=== PATIENT | female | born 1945 ===

== ENCOUNTER 2022-01-21 08:06 | Inpatient (IN) | payer MEDICARE ==
[~2022-01-21] VITALS: Ht 157.5 cm; Wt 56.0 kg
[2022-01-21 08:39] LABS: BASOPHIL 0.3 % (0-2); EOSINOPHIL 0.2 % (0-7); HCT 35.9 % (37.0-47.0); HGB 12.1 g/dl (12.5-16.0); MCH 31.6 pg (25.0-31.0); MCHC 33.7 g/dL (32.0-36.0); MCV 93.7 fL (78.0-100.0); MONOCYTE 6.6 % (0-12); MPV 10.2 fL (6.0-9.5); NEUTROPHIL 86.8 % (41-80); NRBC 0; PLT 219 K/uL (150-400); RBC 3.83 M/uL (4.20-5.40); RDW 13.3 % (11.5-14.0); WBC 15.7 K/uL (4.0-10.5)
[2022-01-21 08:43] LABS: BILIRUBIN NEGATIVE (NEGATIVE); BLOOD NEGATIVE Ery/uL (NEGATIVE); CLARITY CLEAR (CLEAR); COLOR YELLOW (YELLOW); GLUCOSE (U) NORMAL (NORMAL); LEUKOCYTES NEGATIVE Leu/uL (NEGATIVE); NITRITE NEGATIVE (NEGATIVE); PROTEIN TRACE (LOW) mg/dL (NEGATIVE); SPECIFIC GRAVITY 1.025 (1.001-1.030); UROBILINOGEN 0.2 mg/dL (0.2-1.0); pH 5.5 (5.0-9.0)
[2022-01-21 08:48] LABS: INR 1.3 (0.9-1.2); PROTHROMBIN TIME 15.8 SECONDS (11.9-13.9); PTT 25.8 SECONDS (24.9-34.6)
[2022-01-21 08:58] LABS: BACTERIA TRACE; SQUAMOUS EPITHELIAL CELLS 20-50
[2022-01-21 08:59] LABS: URINARY WBC RARE
[2022-01-21 09:02] LABS: ALBUMIN 2.1 g/dL (3.4-5.0); BILIRUBIN - TOTAL 0.8 mg/dL (0.2-1.0); BUN/CREAT RATIO (CALC) 38.1 RATIO; CREATININE 1.13 mg/dL (0.51-0.95); GLOBULIN (CALCULATION) 4.4 g/dL; POTASSIUM 4.7 mmol/L (3.5-5.1); TOTAL PROTEIN 6.5 g/dL (6.4-8.2)
[2022-01-21 09:50] LABS: CKMB 1.3 ng/mL (0.0-3.6)
[2022-01-21] MEDS ORDERED: FLORASTOR250 MG PO (12:01)
[2022-01-21] MEDS ORDERED: LEVAQUIN500 MG PO (12:02)
[2022-01-21] MEDS ORDERED: VITAMIN D350 MC3 PO (12:04)
[2022-01-21 14:29] LABS: RETICULOCYTE COUNT 3.5 % (1.0-2.0)
[2022-01-21 15:16] LABS: BUN/CREAT RATIO (CALC) 37.1 RATIO; CREATININE 1.24 mg/dL (0.51-0.95); POTASSIUM 4.9 mmol/L (3.5-5.1)
[2022-01-21 15:23] LABS: IRON % SATURATION 11.2 %SAT (20-50)
[2022-01-21 15:50] LABS: FT4 (FREE T4) 1.4 ng/dL (0.76-1.46)
[2022-01-22 06:19] LABS: BASOPHIL 0.3 % (0-2); EOSINOPHIL 0.2 % (0-7); HCT 35.8 % (37.0-47.0); HGB 11.9 g/dl (12.5-16.0); LYMPHOCYTE 4.9 % (15-48); MCH 31.8 pg (25.0-31.0); MCHC 33.2 g/dL (32.0-36.0); MCV 95.7 fL (78.0-100.0); MONOCYTE 6.7 % (0-12); MPV 10.5 fL (6.0-9.5); NEUTROPHIL 86.7 % (41-80); NRBC 0; PLT 207 K/uL (150-400); RBC 3.74 M/uL (4.20-5.40); RDW 13.3 % (11.5-14.0); WBC 14.8 K/uL (4.0-10.5)
[2022-01-22 06:58] LABS: ALBUMIN 1.9 g/dL (3.4-5.0); BILIRUBIN - TOTAL 0.7 mg/dL (0.2-1.0); BUN/CREAT RATIO (CALC) 40.9 RATIO; CREATININE 1.1 mg/dL (0.51-0.95); GLOBULIN (CALCULATION) 4.4 g/dL; MAGNESIUM 1.9 mg/dL (1.8-2.4); POTASSIUM 4.3 mmol/L (3.5-5.1); TOTAL PROTEIN 6.3 g/dL (6.4-8.2)
--- NOTE | 2022-01-22 20:49 | NUR ---
cardizem discontinued at 1914 during shift change. hr consistent at 83.
[2022-01-23 06:08] LABS: HBSAG SCREEN Negative (Negative); HCV AB <0.1 (0.0-0.9); HEP A AB, IGM Positive (Negative); HEP B CORE AB, IGM Negative (Negative)
[2022-01-23 06:45] LABS: BASOPHIL 0.2 % (0-2); EOSINOPHIL 0.4 % (0-7); HCT 32.2 % (37.0-47.0); HGB 10.9 g/dl (12.5-16.0); MCH 31.7 pg (25.0-31.0); MCHC 33.9 g/dL (32.0-36.0); MCV 93.6 fL (78.0-100.0); MONOCYTE 8.4 % (0-12); MPV 9.9 fL (6.0-9.5); NRBC 0; PLT 260 K/uL (150-400); RBC 3.44 M/uL (4.20-5.40); RDW 13.6 % (11.5-14.0); WBC 11.1 K/uL (4.0-10.5)
[2022-01-23 07:20] LABS: BUN/CREAT RATIO (CALC) 31.4 RATIO; CREATININE 1.02 mg/dL (0.51-0.95); MAGNESIUM 1.9 mg/dL (1.8-2.4); POTASSIUM 4.1 mmol/L (3.5-5.1)
[2022-01-23 09:07] LABS: ALBUMIN 1.7 g/dL (3.4-5.0); BILIRUBIN - DIRECT 0.3 mg/dL (0.00-0.20); BILIRUBIN - TOTAL 0.7 mg/dL (0.2-1.0); TOTAL PROTEIN 5.7 g/dL (6.4-8.2)
[2022-01-23 19:01] LABS: BASOPHIL 0.2 % (0-2); EOSINOPHIL 0 % (0-7); HCT 33.1 % (37.0-47.0); HGB 11.6 g/dl (12.5-16.0); MCV 91.2 fL (78.0-100.0); MPV 9.7 fL (6.0-9.5); NRBC 0; PLT 377 K/uL (150-400); RBC 3.63 M/uL (4.20-5.40); RDW 13.3 % (11.5-14.0); WBC 15.4 K/uL (4.0-10.5)
[2022-01-23 19:04] LABS: NEUTROPHIL 92.7 % (41-80)
[2022-01-23 19:20] LABS: ALBUMIN 1.9 g/dL (3.4-5.0); BILIRUBIN - TOTAL 0.8 mg/dL (0.2-1.0); BUN/CREAT RATIO (CALC) 36.5 RATIO; CREATININE 0.96 mg/dL (0.51-0.95); GLOBULIN (CALCULATION) 4.4 g/dL; MAGNESIUM 1.8 mg/dL (1.8-2.4); POTASSIUM 4.2 mmol/L (3.5-5.1); TOTAL PROTEIN 6.3 g/dL (6.4-8.2)
[2022-01-24 06:19] LABS: BASOPHIL 0.2 % (0-2); EOSINOPHIL 0.2 % (0-7); HCT 31.7 % (37.0-47.0); HGB 10.9 g/dl (12.5-16.0); LYMPHOCYTE 3.4 % (15-48); MCH 31.8 pg (25.0-31.0); MCHC 34.4 g/dL (32.0-36.0); MCV 92.4 fL (78.0-100.0); MONOCYTE 4.3 % (0-12); MPV 10.1 fL (6.0-9.5); NRBC 0; PLT 328 K/uL (150-400); RBC 3.43 M/uL (4.20-5.40); RDW 13.6 % (11.5-14.0); WBC 19.6 K/uL (4.0-10.5)
[2022-01-24 06:30] LABS: NEUTROPHIL 90.3 % (41-80)
[2022-01-24 06:45] LABS: ALBUMIN 1.7 g/dL (3.4-5.0); BILIRUBIN - TOTAL 0.9 mg/dL (0.2-1.0); BUN/CREAT RATIO (CALC) 35.2 RATIO; CREATININE 1.22 mg/dL (0.51-0.95); MAGNESIUM 1.9 mg/dL (1.8-2.4); POTASSIUM 4.2 mmol/L (3.5-5.1); TOTAL PROTEIN 5.7 g/dL (6.4-8.2)
--- NOTE | 2022-01-24 13:36 | NUR ---
FROM [facility] THEY WILL TAKE HER BACK ONCE MEDICALLY STABLE WILL NEED A COVID PRIOR TO SENDING BACK;
[2022-01-25 05:52] LABS: BASOPHIL 0.2 % (0-2); EOSINOPHIL 0.1 % (0-7); HCT 33.3 % (37.0-47.0); HGB 11.5 g/dl (12.5-16.0); LYMPHOCYTE 5.1 % (15-48); MCH 32.3 pg (25.0-31.0); MCHC 34.5 g/dL (32.0-36.0); MCV 93.5 fL (78.0-100.0); MONOCYTE 3.7 % (0-12); MPV 9.8 fL (6.0-9.5); NEUTROPHIL 89.7 % (41-80); NRBC 0; PLT 348 K/uL (150-400); RBC 3.56 M/uL (4.20-5.40); RDW 13.8 % (11.5-14.0); WBC 19.9 K/uL (4.0-10.5)
[2022-01-25 06:23] LABS: BUN 42 mg/dL (7-18); BUN/CREAT RATIO (CALC) 39.3 RATIO; CHLORIDE 94 mmol/L (98-107); CO2 (BICARBONATE) 28 mmol/L (21-32); CREATININE 1.07 mg/dL (0.51-0.95); GLUCOSE 94 mg/dL (74-106); MAGNESIUM 1.9 mg/dL (1.8-2.4); POTASSIUM 3.3 mmol/L (3.5-5.1)
[2022-01-25 06:27] LABS: C-REACTIVE PROTEIN > 18.00 mg/dL (<=0.90)
[2022-01-26 06:46] LABS: BASOPHIL 0.1 % (0-2); EOSINOPHIL 0.1 % (0-7); HCT 35.5 % (37.0-47.0); HGB 11.9 g/dl (12.5-16.0); LYMPHOCYTE 5.3 % (15-48); MCH 31.6 pg (25.0-31.0); MCHC 33.5 g/dL (32.0-36.0); MCV 94.2 fL (78.0-100.0); MONOCYTE 2.8 % (0-12); MPV 9.6 fL (6.0-9.5); NEUTROPHIL 90.1 % (41-80); NRBC 0; PLT 347 K/uL (150-400); RBC 3.77 M/uL (4.20-5.40); RDW 13.5 % (11.5-14.0); WBC 17.1 K/uL (4.0-10.5)
[2022-01-26 07:04] LABS: ALBUMIN 1.5 g/dL (3.4-5.0); BILIRUBIN - TOTAL 0.6 mg/dL (0.2-1.0); BUN/CREAT RATIO (CALC) 36.5 RATIO; C-REACTIVE PROTEIN 13.4 mg/dL (<=0.90); CREATININE 0.85 mg/dL (0.51-0.95); GLOBULIN (CALCULATION) 3.9 g/dL; MAGNESIUM 1.8 mg/dL (1.8-2.4); PHOSPHORUS 2.6 mg/dL (2.6-4.7); POTASSIUM 3.6 mmol/L (3.5-5.1); TOTAL PROTEIN 5.4 g/dL (6.4-8.2)
[2022-01-26 07:55] LABS: LYMPHOCYTE(M) 2 % (15-48); MONOCYTE(M) 1 % (0-12); NEUTROPHILS(M) 97 % (41-80); TOTAL CELL COUNT 100
[2022-01-26 07:56] LABS: PLATELET ESTIMATE NORMAL; PLATELET MORPHOLOGY CLUMPING
[2022-01-27 06:02] LABS: ALBUMIN 1.5 g/dL (3.4-5.0); BILIRUBIN - TOTAL 0.6 mg/dL (0.2-1.0); BUN/CREAT RATIO (CALC) 35.8 RATIO; CREATININE 0.67 mg/dL (0.51-0.95); GLOBULIN (CALCULATION) 3.9 g/dL; MAGNESIUM 1.6 mg/dL (1.8-2.4); PHOSPHORUS 2.5 mg/dL (2.6-4.7); POTASSIUM 3.6 mmol/L (3.5-5.1); TOTAL PROTEIN 5.4 g/dL (6.4-8.2)
[2022-01-27 07:50] LABS: BASOPHIL 0.2 % (0-2); EOSINOPHIL 0.2 % (0-7); HCT 35.6 % (37.0-47.0); HGB 12.1 g/dl (12.5-16.0); LYMPHOCYTE 4.7 % (15-48); MCH 31.8 pg (25.0-31.0); MCV 93.7 fL (78.0-100.0); MONOCYTE 4.5 % (0-12); MPV 9.5 fL (6.0-9.5); NEUTROPHIL 88.2 % (41-80); NRBC 0; PLT 335 K/uL (150-400); RDW 13.2 % (11.5-14.0); WBC 12.8 K/uL (4.0-10.5)
--- NOTE | 2022-01-27 13:00 | NUR ---
01/27/22 Ms. Harvey was admitted from [facility]. [facility] will accept her back per Pratibha Cunningham.
[2022-01-28 05:41] LABS: BASOPHIL 0.1 % (0-2); EOSINOPHIL 0.1 % (0-7); HCT 33.1 % (37.0-47.0); HGB 11.5 g/dl (12.5-16.0); LYMPHOCYTE 6.4 % (15-48); MCH 31.7 pg (25.0-31.0); MCHC 34.7 g/dL (32.0-36.0); MCV 91.2 fL (78.0-100.0); MONOCYTE 4.7 % (0-12); MPV 9.5 fL (6.0-9.5); NEUTROPHIL 87.6 % (41-80); NRBC 0; PLT 299 K/uL (150-400); RBC 3.63 M/uL (4.20-5.40); RDW 13.1 % (11.5-14.0); WBC 14.8 K/uL (4.0-10.5)
[2022-01-28 06:52] LABS: ALBUMIN 1.6 g/dL (3.4-5.0); BILIRUBIN - TOTAL 0.6 mg/dL (0.2-1.0); BUN/CREAT RATIO (CALC) 34.8 RATIO; C-REACTIVE PROTEIN 6.2 mg/dL (<=0.90); CREATININE 0.66 mg/dL (0.51-0.95); GLOBULIN (CALCULATION) 3.4 g/dL; MAGNESIUM 2.1 mg/dL (1.8-2.4); PHOSPHORUS 2.4 mg/dL (2.6-4.7); POTASSIUM 3.7 mmol/L (3.5-5.1)
--- NOTE | 2022-01-28 12:39 | NUR ---
01/28/22 [facility] has accepted Ms. Harvey for admission on 01/29/22. Please call report to: [phone] and fax DS to: [phone]. [facility] will loan for the transport. Kodak Harvey, son, , has agreed to transport and return the tanks to [facility].
--- NOTE | 2022-01-29 09:48 | NUR ---
01/29/22 Patient now meets criteria for EMS r/t isolation and need for stretcher. Kodak Harvey, son, was informed. 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
[2022-01-29] MEDS ORDERED: LOPRESSOR50 MG PO (11:17)
[2022-01-29] MEDS ORDERED: DIFICID200 MG PO (11:17)
[2022-01-29] MEDS ORDERED: ELIQUIS5 MG PO (11:17)
[2022-01-29] MEDS ORDERED: BUMETANIDE1 MG PO (11:17)
[2022-01-29] MEDS ORDERED: ACETAMINOPHEN325 MG PO (11:17)
[2022-01-29] MEDS ORDERED: DIGITEK125 MCG PO (11:17)
[2022-01-29] MEDS ORDERED: KLOR-CON M2020 MEQ PO (11:17)
--- NOTE | 2022-01-29 12:21 | NUR ---
PATIENT'S SON TOOK HER PURSE, LEFT HER [employer]'S LICENSE WHICH WAS PUT IN ENVELOPE WITH PAPERWORK GOING TO [facility]
--- NOTE | 2022-01-29 12:46 | NUR ---
01/29/22 [facility] will no longer accept patient due to a positive COVID test. [facility] will accept her back. Kodak Harvey, son, is in agreement with [facility] returning to [facility].
--- NOTE | 2022-01-29 14:10 | NUR ---
REPORT TO ROGELIO AT [facility]
== END 2022-01-29 16:25 | DRG 280 ==
LOC: FER 08:06 → FTCU 10:07 → FICU 10:07 → FTCU 10:07 → FICU 14:56 → FTCU 01-26 12:18 → FICU 01-26 12:18 → FTCU 01-29 16:25
PROVIDERS: Emergency Medicine; Internal Medicine Cardiovascular Disease; Nurse Practitioner Family; ADMIT Internal Medicine
PROC: B24BZZZ Ultrasonography of Heart with Aorta (ICD-10-PCS; principal; 2022-01-21)
PROC: 8E0ZXY6 Isolation (ICD-10-PCS; 2022-01-23)
PROC: 5A09357 Assistance with Respiratory Ventilation, Less than 24 Consecutive Hours, Continuous Positive Airway Pressure (ICD-10-PCS; 2022-01-24)
DX: I48.0 Paroxysmal atrial fibrillation (principal); I50.41 Acute combined systolic (congestive) and diastolic (congestive) heart failure; I21.A1 Myocardial infarction type 2; J18.9 Pneumonia, unspecified organism; U07.1 COVID-19; I63.10 Cerebral infarction due to embolism of unspecified precerebral artery; A04.72 Enterocolitis due to Clostridium difficile, not specified as recurrent; B15.9 Hepatitis A without hepatic coma; I13.0 Hypertensive heart and chronic kidney disease with heart failure and stage 1 through stage 4 chronic kidney disease, or unspecified chronic kidney disease; N17.9 Acute kidney failure, unspecified; E87.1 Hypo-osmolality and hyponatremia; G81.91 Hemiplegia, unspecified affecting right dominant side; I48.92 Unspecified atrial flutter; Y95 Nosocomial condition; F03.90 Unspecified dementia, unspecified severity, without behavioral disturbance, psychotic disturbance, mood disturbance, and anxiety; I27.20 Pulmonary hypertension, unspecified; E78.5 Hyperlipidemia, unspecified; E55.9 Vitamin D deficiency, unspecified; M85.80 Other specified disorders of bone density and structure, unspecified site; M17.11 Unilateral primary osteoarthritis, right knee; N18.30 Chronic kidney disease, stage 3 unspecified; E78.00 Pure hypercholesterolemia, unspecified; D63.1 Anemia in chronic kidney disease; D50.9 Iron deficiency anemia, unspecified; R29.6 Repeated falls; Z88.2 Allergy status to sulfonamides; Z91.81 History of falling; Z28.311 Partially vaccinated for COVID-19
CPT/HCPCS: 36415; 36600; 70544; 70548; 70551; 71045; 80048; 80053; 80074; 80076; 80162; 80202; 81001; 82553; 82607; 82803; 82962; 83540; 83550; 83605; 83735; 83880; 84100; 84145; 84300; 84439; 84443; 84484; 85025; 85610; 85730; 86140; 87040; 87324; 87449; 93005; 94660; 96374; 96375; 97110; 97162; 97167; 97530; 97530-GP; 97535; A9579; J0282; J0456; J0696; J1160; J1650; J1940; J2185; J2270; J2543; J2916; J3370; J3475; J7050; J7060; U0002

== ENCOUNTER 2022-02-11 14:40 | Inpatient (IN) | payer MEDICARE ==
[~2022-02-11] VITALS: Ht 157.5 cm; Wt 48.0 kg
[~2022-02-11 14:40] MED LIST: ACETAMINOPHEN325 MG PO; BUMETANIDE1 MG PO; DIFICID200 MG PO; DIGITEK125 MCG PO; ELIQUIS5 MG PO; FLORASTOR250 MG PO; KLOR-CON M2020 MEQ PO; LEVAQUIN500 MG PO; LOPRESSOR50 MG PO; VITAMIN D350 MC3 PO
[2022-02-11 16:38] LABS: BASOPHIL 0.3 % (0-2); EOSINOPHIL 0.3 % (0-7); HCT 36.5 % (37.0-47.0); HGB 12.2 g/dl (12.5-16.0); LYMPHOCYTE 11.2 % (15-48); MCH 30.5 pg (25.0-31.0); MCHC 33.4 g/dL (32.0-36.0); MCV 91.3 fL (78.0-100.0); MONOCYTE 9.8 % (0-12); NEUTROPHIL 77.8 % (41-80); NRBC 0; PLT 392 K/uL (150-400); RDW 13.2 % (11.5-14.0); WBC 9.7 K/uL (4.0-10.5)
[2022-02-11 16:53] LABS: BILIRUBIN NEGATIVE (NEGATIVE); BLOOD NEGATIVE Ery/uL (NEGATIVE); CLARITY CLEAR (CLEAR); COLOR YELLOW (YELLOW); GLUCOSE (U) NORMAL (NORMAL); LEUKOCYTES NEGATIVE Leu/uL (NEGATIVE); NITRITE NEGATIVE (NEGATIVE); PROTEIN NEGATIVE (NEGATIVE); UROBILINOGEN 0.2 mg/dL (0.2-1.0); pH 5.5 (5.0-9.0)
[2022-02-11 16:55] LABS: INR 1.72 (0.9-1.2); PROTHROMBIN TIME 19.6 SECONDS (11.9-13.9); PTT 34.2 SECONDS (24.9-34.6)
[2022-02-11 17:33] LABS: BUN/CREAT RATIO (CALC) 21.8 RATIO; CREATININE 1.1 mg/dL (0.51-0.95); POTASSIUM 4.7 mmol/L (3.5-5.1)
[2022-02-12] MEDS ORDERED: BUMEX 1MG TABLET1 MG PO (01:02)
[2022-02-12] MEDS ORDERED: ACETAMINOPHEN325 M1 PO (01:02)
[2022-02-12] MEDS ORDERED: ELIQUIS5 MG PO (01:03)
[2022-02-12] MEDS ORDERED: DIGITEK125 MCG PO (01:03)
[2022-02-12] MEDS ORDERED: LOPRESSOR50 MG PO (01:04)
[2022-02-12] MEDS ORDERED: SACCHAROMYCES250 MG PO (01:04)
[2022-02-12] MEDS ORDERED: K-TAB ER20 MEQ PO (01:05)
[2022-02-12] MEDS ORDERED: VITAMIN D350 MC3 PO (01:06)
[2022-02-12 06:06] LABS: BASOPHIL 0.7 % (0-2); HCT 33.3 % (37.0-47.0); HGB 11.1 g/dl (12.5-16.0); LYMPHOCYTE 16.6 % (15-48); MCH 30.5 pg (25.0-31.0); MCHC 33.3 g/dL (32.0-36.0); MCV 91.5 fL (78.0-100.0); MONOCYTE 12.6 % (0-12); MPV 10.2 fL (6.0-9.5); NEUTROPHIL 68.4 % (41-80); NRBC 0; PLT 355 K/uL (150-400); RBC 3.64 M/uL (4.20-5.40); RDW 13.2 % (11.5-14.0); WBC 7.1 K/uL (4.0-10.5)
[2022-02-12 06:52] LABS: BUN/CREAT RATIO (CALC) 21.6 RATIO; CREATININE 1.02 mg/dL (0.51-0.95); MAGNESIUM 2.1 mg/dL (1.8-2.4); POTASSIUM 4.3 mmol/L (3.5-5.1)
[2022-02-13 06:34] LABS: BASOPHIL 0.7 % (0-2); EOSINOPHIL 0.9 % (0-7); HCT 32.7 % (37.0-47.0); HGB 10.9 g/dl (12.5-16.0); LYMPHOCYTE 15.4 % (15-48); MCH 30.8 pg (25.0-31.0); MCHC 33.3 g/dL (32.0-36.0); MCV 92.4 fL (78.0-100.0); MONOCYTE 11.3 % (0-12); MPV 10.3 fL (6.0-9.5); NEUTROPHIL 70.5 % (41-80); NRBC 0; PLT 379 K/uL (150-400); RBC 3.54 M/uL (4.20-5.40); RDW 13.2 % (11.5-14.0); WBC 6.9 K/uL (4.0-10.5)
[2022-02-13 07:06] LABS: BUN/CREAT RATIO (CALC) 18.5 RATIO; CREATININE 1.08 mg/dL (0.51-0.95); MAGNESIUM 1.7 mg/dL (1.8-2.4); POTASSIUM 3.8 mmol/L (3.5-5.1)
[2022-02-14 06:54] LABS: BASOPHIL 0.6 % (0-2); EOSINOPHIL 1.8 % (0-7); HCT 31.9 % (37.0-47.0); HGB 10.8 g/dl (12.5-16.0); LYMPHOCYTE 15.1 % (15-48); MCH 30.6 pg (25.0-31.0); MCHC 33.9 g/dL (32.0-36.0); MCV 90.4 fL (78.0-100.0); MONOCYTE 11.8 % (0-12); MPV 10.4 fL (6.0-9.5); NRBC 0; PLT 402 K/uL (150-400); RBC 3.53 M/uL (4.20-5.40); RDW 13.2 % (11.5-14.0); WBC 6.7 K/uL (4.0-10.5)
[2022-02-14 07:11] LABS: BUN/CREAT RATIO (CALC) 15.7 RATIO; CREATININE 1.08 mg/dL (0.51-0.95); MAGNESIUM 1.9 mg/dL (1.8-2.4); POTASSIUM 3.7 mmol/L (3.5-5.1)
[2022-02-16 05:37] LABS: BASOPHIL 0.2 % (0-2); EOSINOPHIL 0.4 % (0-7); HCT 31.2 % (37.0-47.0); HGB 10.7 g/dl (12.5-16.0); LYMPHOCYTE 4.4 % (15-48); MCH 30.4 pg (25.0-31.0); MCHC 34.3 g/dL (32.0-36.0); MCV 88.6 fL (78.0-100.0); MONOCYTE 6.3 % (0-12); MPV 9.9 fL (6.0-9.5); NEUTROPHIL 87.9 % (41-80); NRBC 0; PLT 402 K/uL (150-400); RBC 3.52 M/uL (4.20-5.40); RDW 13.9 % (11.5-14.0)
[2022-02-16 06:16] LABS: CREATININE 1.63 mg/dL (0.51-0.95); POTASSIUM 3.6 mmol/L (3.5-5.1)
[2022-02-16 10:02] LABS: HCT 33.5 % (37.0-47.0); HGB 11.5 g/dl (12.5-16.0); MCH 30.5 pg (25.0-31.0); MCHC 34.3 g/dL (32.0-36.0); MCV 88.9 fL (78.0-100.0); MPV 9.8 fL (6.0-9.5); RBC 3.77 M/uL (4.20-5.40); WBC 25.7 K/uL (4.0-10.5)
[2022-02-17 05:56] LABS: BASOPHIL 0.2 % (0-2); EOSINOPHIL 0.4 % (0-7); HCT 29.6 % (37.0-47.0); HGB 10.1 g/dl (12.5-16.0); LYMPHOCYTE 7.4 % (15-48); MCH 30.3 pg (25.0-31.0); MCHC 34.1 g/dL (32.0-36.0); MCV 88.9 fL (78.0-100.0); MONOCYTE 6.5 % (0-12); MPV 9.8 fL (6.0-9.5); NEUTROPHIL 84.9 % (41-80); NRBC 0; PLT 388 K/uL (150-400); RBC 3.33 M/uL (4.20-5.40); WBC 20.9 K/uL (4.0-10.5)
[2022-02-17 06:16] LABS: BUN/CREAT RATIO (CALC) 18.9 RATIO; CREATININE 1.69 mg/dL (0.51-0.95); POTASSIUM 3.4 mmol/L (3.5-5.1)
[2022-02-18 07:42] LABS: BASOPHIL 0.5 % (0-2); EOSINOPHIL 1.1 % (0-7); HCT 31.8 % (37.0-47.0); HGB 10.9 g/dl (12.5-16.0); LYMPHOCYTE 6.7 % (15-48); MCH 30.9 pg (25.0-31.0); MCHC 34.3 g/dL (32.0-36.0); MCV 90.1 fL (78.0-100.0); MONOCYTE 5.2 % (0-12); MPV 9.8 fL (6.0-9.5); NEUTROPHIL 85.5 % (41-80); NRBC 0; PLT 389 K/uL (150-400); RBC 3.53 M/uL (4.20-5.40)
[2022-02-18 08:12] LABS: BUN/CREAT RATIO (CALC) 23.5 RATIO; CREATININE 1.15 mg/dL (0.51-0.95); MAGNESIUM 1.9 mg/dL (1.8-2.4)
[2022-02-19 06:41] LABS: BASOPHIL 0.7 % (0-2); HCT 33.4 % (37.0-47.0); HGB 11.1 g/dl (12.5-16.0); LYMPHOCYTE 12.1 % (15-48); MCH 30.2 pg (25.0-31.0); MCHC 33.2 g/dL (32.0-36.0); MCV 90.8 fL (78.0-100.0); MONOCYTE 7.9 % (0-12); MPV 9.7 fL (6.0-9.5); NEUTROPHIL 75.7 % (41-80); NRBC 0; PLT 435 K/uL (150-400); RBC 3.68 M/uL (4.20-5.40); RDW 13.7 % (11.5-14.0); WBC 9.2 K/uL (4.0-10.5)
[2022-02-19 08:00] LABS: BUN/CREAT RATIO (CALC) 21.2 RATIO; CREATININE 1.04 mg/dL (0.51-0.95); POTASSIUM 4.3 mmol/L (3.5-5.1)
[2022-02-19] MEDS ORDERED: LOPRESSOR50 MG PO (13:51)
[2022-02-19] MEDS ORDERED: DIFICID200 MG PO (13:51)
[2022-02-19] MEDS ORDERED: CARDIZEM CD240 MG PO (13:52)
== END 2022-02-19 15:42 | DRG 291 ==
LOC: FER 14:40 → FTCU 17:54
PROVIDERS: Emergency Medicine; Internal Medicine; ADMIT Internal Medicine
DX: I13.0 Hypertensive heart and chronic kidney disease with heart failure and stage 1 through stage 4 chronic kidney disease, or unspecified chronic kidney disease (principal); I50.33 Acute on chronic diastolic (congestive) heart failure; U07.1 COVID-19; A04.72 Enterocolitis due to Clostridium difficile, not specified as recurrent; I69.351 Hemiplegia and hemiparesis following cerebral infarction affecting right dominant side; B15.9 Hepatitis A without hepatic coma; N17.8 Other acute kidney failure; Z66 Do not resuscitate; S01.81XA Laceration without foreign body of other part of head, initial encounter; W19.XXXA Unspecified fall, initial encounter; I27.20 Pulmonary hypertension, unspecified; F03.90 Unspecified dementia, unspecified severity, without behavioral disturbance, psychotic disturbance, mood disturbance, and anxiety; E78.5 Hyperlipidemia, unspecified; N18.2 Chronic kidney disease, stage 2 (mild); M85.80 Other specified disorders of bone density and structure, unspecified site; I48.0 Paroxysmal atrial fibrillation; I49.5 Sick sinus syndrome; T50.1X5A Adverse effect of loop [high-ceiling] diuretics, initial encounter; Z88.2 Allergy status to sulfonamides; Z79.01 Long term (current) use of anticoagulants; Z82.49 Family history of ischemic heart disease and other diseases of the circulatory system; Z79.899 Other long term (current) drug therapy; Z28.310 Unvaccinated for COVID-19
CPT/HCPCS: 36415; 70450; 71045; 72170; 73552; 80048; 80162; 81003; 83735; 83880; 84484; 85025; 85610; 85730; 93005; 94010; 94760; 94762; 97116; 97162; 97166; 97530; 97535; J1940; J3475; U0002

== ENCOUNTER 2022-03-14 13:36 | Inpatient (IN) | payer MEDICARE ==
[~2022-03-14] VITALS: Ht 157.5 cm; Wt 46.8 kg
[~2022-03-14 13:36] MED LIST changes: +ACETAMINOPHEN325 M1 PO; +BUMEX 1MG TABLET1 MG PO; +CARDIZEM CD240 MG PO; +K-TAB ER20 MEQ PO; +SACCHAROMYCES250 MG PO
[2022-03-14 14:15] LABS: BASOPHIL 0.1 % (0-2); EOSINOPHIL 0.5 % (0-7); HCT 40.8 % (37.0-47.0); HGB 13.1 g/dl (12.5-16.0); LYMPHOCYTE 8.1 % (15-48); MCH 29.8 pg (25.0-31.0); MCHC 32.1 g/dL (32.0-36.0); MCV 92.7 fL (78.0-100.0); MONOCYTE 4.1 % (0-12); MPV 9.7 fL (6.0-9.5); NEUTROPHIL 86.6 % (41-80); NRBC 0; PLT 390 K/uL (150-400); RDW 16.6 % (11.5-14.0)
[2022-03-14 14:18] LABS: WBC 19.5 K/uL (4.0-10.5)
[2022-03-14 14:37] LABS: INR 1.91 (0.9-1.2); PROTHROMBIN TIME 21.2 SECONDS (11.9-13.9); PTT 43.1 SECONDS (24.9-34.6)
[2022-03-14 14:37] LABS: BILIRUBIN NEGATIVE (NEGATIVE); BLOOD NEGATIVE Ery/uL (NEGATIVE); CLARITY CLEAR (CLEAR); COLOR STRAW (YELLOW); GLUCOSE (U) NORMAL (NORMAL); LEUKOCYTES TRACE Leu/uL (NEGATIVE); NITRITE NEGATIVE (NEGATIVE); PROTEIN NEGATIVE (NEGATIVE); UROBILINOGEN 0.2 mg/dL (0.2-1.0); pH 5.5 (5.0-9.0)
[2022-03-14 15:05] LABS: LACTIC ACID 3.2 mmol/L (0.4-1.9)
[2022-03-14 15:38] LABS: CKMB 1.4 ng/mL (0.0-3.6)
[2022-03-14 16:22] LABS: CREATININE 1.89 mg/dL (0.51-0.95); POTASSIUM 5.2 mmol/L (3.5-5.1); TOTAL PROTEIN 7.1 g/dL (6.4-8.2)
[2022-03-14 16:23] LABS: ALBUMIN 2.1 g/dL (3.4-5.0); BILIRUBIN - TOTAL 0.2 mg/dL (0.2-1.0)
[2022-03-14] MEDS ORDERED: REMERON15 MG PO (19:12)
[2022-03-14] MEDS ORDERED: MYCOLOG15 GM TOP (19:13)
[2022-03-14] MEDS ORDERED: QUESTRAN PACKET4 GM PO (19:14)
[2022-03-14] MEDS ORDERED: VITAMIN D250 MCG PO (19:15)
[2022-03-15 05:48] LABS: BASOPHIL 0.4 % (0-2); EOSINOPHIL 1.4 % (0-7); HCT 35.3 % (37.0-47.0); HGB 11.8 g/dl (12.5-16.0); LYMPHOCYTE 11.1 % (15-48); MCH 30.4 pg (25.0-31.0); MCHC 33.4 g/dL (32.0-36.0); MONOCYTE 6.7 % (0-12); MPV 9.4 fL (6.0-9.5); NEUTROPHIL 79.4 % (41-80); NRBC 0; PLT 301 K/uL (150-400); RBC 3.88 M/uL (4.20-5.40); RDW 16.4 % (11.5-14.0)
[2022-03-15 05:51] LABS: WBC 13.4 K/uL (4.0-10.5)
[2022-03-15 06:15] LABS: BUN/CREAT RATIO (CALC) 35.4 RATIO; C-REACTIVE PROTEIN 14.3 mg/dL (<=0.90); CREATININE 1.27 mg/dL (0.51-0.95); MAGNESIUM 1.4 mg/dL (1.8-2.4); PHOSPHORUS 3.8 mg/dL (2.6-4.7); POTASSIUM 4.4 mmol/L (3.5-5.1)
[2022-03-15 10:49] LABS: BILIRUBIN NEGATIVE (NEGATIVE); BLOOD 2+ Ery/uL (NEGATIVE); CLARITY CLEAR (CLEAR); COLOR YELLOW (YELLOW); GLUCOSE (U) NORMAL (NORMAL); LEUKOCYTES 1+ Leu/uL (NEGATIVE); NITRITE NEGATIVE (NEGATIVE); PROTEIN 1+ mg/dL (NEGATIVE); UROBILINOGEN 0.2 mg/dL (0.2-1.0)
[2022-03-15 10:56] LABS: URINARY RBC 20-50
[2022-03-15 10:57] LABS: BACTERIA 2+
[2022-03-17 05:59] LABS: BASOPHIL 0.6 % (0-2); EOSINOPHIL 3.3 % (0-7); HCT 36.8 % (37.0-47.0); HGB 12.3 g/dl (12.5-16.0); LYMPHOCYTE 13.8 % (15-48); MCH 29.9 pg (25.0-31.0); MCHC 33.4 g/dL (32.0-36.0); MCV 89.3 fL (78.0-100.0); MPV 9.4 fL (6.0-9.5); NRBC 0; PLT 326 K/uL (150-400); RBC 4.12 M/uL (4.20-5.40); RDW 15.9 % (11.5-14.0); WBC 9.6 K/uL (4.0-10.5)
[2022-03-17 06:25] LABS: BUN/CREAT RATIO (CALC) 25.8 RATIO; CREATININE 0.89 mg/dL (0.51-0.95); POTASSIUM 3.9 mmol/L (3.5-5.1)
[2022-03-17] MEDS ORDERED: BUMEX1 MG PO (10:10)
[2022-03-17] MEDS ORDERED: DIFICID200 MG PO (10:10)
== END 2022-03-17 15:40 | DRG 308 ==
LOC: FER 13:36 → FTCU 18:10
PROVIDERS: Emergency Medicine; Nurse Practitioner Acute Care; ADMIT Internal Medicine
PROC: 8E0ZXY6 Isolation (ICD-10-PCS; principal; 2022-03-14)
DX: I48.20 Chronic atrial fibrillation, unspecified (principal); U07.1 COVID-19; A04.71 Enterocolitis due to Clostridium difficile, recurrent; N17.9 Acute kidney failure, unspecified; I13.0 Hypertensive heart and chronic kidney disease with heart failure and stage 1 through stage 4 chronic kidney disease, or unspecified chronic kidney disease; I50.32 Chronic diastolic (congestive) heart failure; I69.351 Hemiplegia and hemiparesis following cerebral infarction affecting right dominant side; E87.2 Acidosis; J98.11 Atelectasis; E86.0 Dehydration; R00.1 Bradycardia, unspecified; F03.90 Unspecified dementia, unspecified severity, without behavioral disturbance, psychotic disturbance, mood disturbance, and anxiety; N18.30 Chronic kidney disease, stage 3 unspecified; M85.80 Other specified disorders of bone density and structure, unspecified site; D72.829 Elevated white blood cell count, unspecified; E87.5 Hyperkalemia; R73.9 Hyperglycemia, unspecified; Z82.49 Family history of ischemic heart disease and other diseases of the circulatory system; Z88.2 Allergy status to sulfonamides; Z79.899 Other long term (current) drug therapy; Z79.01 Long term (current) use of anticoagulants
CPT/HCPCS: 36415; 71045; 80048; 80053; 81001; 82553; 83036; 83605; 83735; 83880; 84100; 84145; 84443; 84484; 85025; 85610; 85730; 86140; 87088; 87324; 87449; 93005; 94760; J3475; J7030; J7040; U0002